=== PATIENT | male | born 1980 | race Caucasian/White ===

== ENCOUNTER 2019-11-21 13:48 | Emergency (ER) | payer OTHER, SELFPAY ==
[2019-11-21 13:59] VITALS: BP 157/94; PULSE 87; RESP 16; TEMP 36.2; O2SAT 100
--- NOTE | 2019-11-21 14:00 | DI.RAD_ITS ---
EXAM: XR ELBOW LT COMPLETE CLINICAL HISTORY: Fall, pain, swelling TECHNIQUE: COMPARISON: No exams were available for comparison FINDINGS: Three views were obtained. There is a moderately displaced olecranon fracture extending through the articular surface. No additional fracture seen on this limited series, the humeral condyles are not ideally visualized. IMPRESSION: RADIATION DOSE DELIVERED: Total DLP
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
--- NOTE | 2019-11-21 14:40 | DI.VRAD_ITS ---
PROCEDURE INFORMATION: Exam: XR Left Elbow Exam date and time: 11/21/2019 2:20 PM Age: 39 years old Clinical indication: Injury or trauma; Fall; Blunt trauma (contusions or hematomas); Elbow; Left TECHNIQUE: Imaging protocol: XR Left elbow. Views: 3 or more views. COMPARISON: No relevant prior studies available. FINDINGS: Bones/joints: There is a minimally displaced partially distracted transverse fracture through the olecranon of the ulna. This fracture likely extends to the elbow joint space. There is no joint dislocation. There is evidence of a small joint effusion. The humerus and radius appear grossly intact. Soft tissues: There is suggestion of soft tissue swelling at the posterior elbow. IMPRESSION: 1. Minimally displaced partially distracted transverse fracture through the olecranon of the ulna. No evidence of joint dislocation. 2. Small joint effusion noted. Dictated and Authenticated by: Azalea Dong MD. Ordering:YULIA Sparrow MD
[2019-11-21] MEDS: Ibuprofen 800 MG TAB PO (14:54)
--- NOTE | 2019-11-23 16:03 | NUR.NOTE ---
Referral, note and x/r reading faxed to patients ortho office in [facility]. [phone].Nursing Note:
== END 2019-11-21 15:24 | disposition home or self-care (01) ==
PROVIDERS: Emergency Provider Emergency Medicine
DX: S52.032A Displaced fracture of olecranon process with intraarticular extension of left ulna, initial encounter for closed fracture (principal); S50.312A Abrasion of left elbow, initial encounter; V18.0XXA Pedal cycle driver injured in noncollision transport accident in nontraffic accident, initial encounter; Y93.55 Activity, bike riding
CPT/HCPCS: 24670; 73080; L3650